=== PATIENT | male | born 1955 | race Caucasian/White ===

== ENCOUNTER 2016-11-10 20:19 | Inpatient (IN) ==
[2016-11-10] MEDS ORDERED: HYDROMORPHONE 2 MG/ML INJECTION IVP ONE ×2 (20:29→21:40)
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
[2016-11-10] MEDS: CYCLOBENZAPRINE 10 MG TABLET PO PRN (23:52)
[2016-11-10] MEDS: LR 1,000 ML IV SCH (23:52)
[2016-11-10] MEDS: HYDROMORPHONE 2 MG/ML INJECTION IVP PRN (23:54)
[2016-11-11] MEDS ORDERED: HYDROMORPHONE 2 MG/ML INJECTION IVP PRN (00:11)
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
[2016-11-11] MEDS: HYDROCODONE/APAP 10 MG/325 MG TABLET PO PRN ×4 (00:34→23:51)
[2016-11-11 00:43] VITALS: BMI 27.0
[2016-11-11] MEDS: HYDROMORPHONE 2 MG/ML INJECTION IVP PRN ×5 (05:49→14:06)
[2016-11-11] MEDS ORDERED: NOZIN NASAL SWAB NAS ONE (06:00)
--- NOTE | 2016-11-11 08:16 | XRay Report ---
Indication: fall, left great toe injury PROCEDURE: XR toes LT min 2V: Encounter: Initial Comparison: None Findings: There is no acute fracture, dislocation or malalignment identified. Impression: No acute osseous abnormality. .
--- NOTE | 2016-11-11 08:17 | XRay Report ---
Indication: fall, right hip and pelvis pain PROCEDURE: XR femur RT 2V: Encounter: Initial Comparison: None Findings: Minimally displaced fracture of the right mid femoral neck. No additional acute fracture or dislocation seen. No significant angulation on the crosstable lateral view. Impression: Closed posttraumatic right femoral neck fracture. .
--- NOTE | 2016-11-11 08:18 | XRay Report ---
Indication: fall, pelvis and hip pain PROCEDURE: XR pelvis w/ 2 view BI hip: Encounter: Initial Comparison: Right femur radiographs from the same date Findings: Minimally displaced right femoral neck fracture is again noted. No additional acute fracture. No dislocation. Hip joint spaces are maintained. Impression: Closed posttraumatic right femoral neck fracture. .
--- NOTE | 2016-11-11 08:20 | CT Scan Report ---
Indication: fall, head and neck pain PROCEDURE: CT cervical spine wo con: Encounter: Initial Comparison: None Technique: Axial CT images through the cervical spine were performed without contrast. Coronal and sagittal reformatted images were also obtained. Automated Exposure Control and Iterative Reconstruction dose reducing techniques were utilized. FINDINGS: The alignment of the cervical spine is normal. Congenitally unfused posterior arch of C1. Multilevel degenerative changes are present. There is no evidence of acute fracture or subluxation of the cervical spine. The atlantoaxial articulation, dens, and upper cervical spine demonstrate no subluxation. The paraspinal soft tissues and spinal canal appear unremarkable. IMPRESSION: No acute traumatic abnormality of the cervical spine. There is a preliminary report by [employer] radiologic. .
--- NOTE | 2016-11-11 08:21 | CT Scan Report ---
Indication: fall, head and neck pain PROCEDURE: CT head/brain wo con: Encounter: Initial Comparison: None Technique: Axial CT images through the head were performed without contrast. Iterative Reconstruction dose reducing technique was utilized. FINDINGS: Mild atrophy. The ventricles are of normal size, shape, and configuration for the patient's age. There is no evidence of acute intracranial hemorrhage, midline displacement, or mass effect. The CT attenuation of the brain parenchyma is otherwise normal within the cerebellum, brain stem, and cerebral hemispheres. The tympanic cavities and mastoid air cells are free of appreciable disease. There are no definite fractures of the skull base, calvarium, or visualized portion of the midface. IMPRESSION: No CT evidence of acute traumatic intracranial injury. There is a preliminary report by [employer]. .
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
[2016-11-11] MEDS ORDERED: HYDROCODONE/APAP 10 MG/325 MG TABLET PO PRN (10:05)
[2016-11-11] MEDS ORDERED: FLUTICASONE NASAL SPRAY 50mcg EA NOSTRIL PRN (10:05)
[2016-11-11] MEDS: LR 1,000 ML IV SCH ×3 (10:30→13:54)
[2016-11-11] MEDS ORDERED: VANCOMYCIN 1,000 MG INJECTION ONE (10:38)
[2016-11-11] MEDS ORDERED: MIDAZOLAM 2mg/2ml INJECTION ONE (10:54)
[2016-11-11] MEDS ORDERED: FentaNYL 250 MCG/5 ML INJECTION ONE ×2 (10:54→12:16)
[2016-11-11] MEDS ORDERED: ANESTHESIA MIXTURE 50 ML IV ONE (11:00)
[2016-11-11] MEDS ORDERED: DEXAMETHASONE 4 MG/ML INJECTION ONE ×2 (11:01→11:20)
[2016-11-11] MEDS ORDERED: ONDANSETRON 4 MG/2 ML INJECTION ONE ×2 (11:01→11:20)
--- NOTE | 2016-11-11 11:07 | XRay Report ---
Indication: preop clearance PROCEDURE: XR chest 1V: Encounter: Initial Comparison: June 09, 2016 Findings: The lungs are stable in appearance without new focal airspace consolidation. There is no pleural effusion or pneumothorax. The heart size, pulmonary vascularity and mediastinal contours are unchanged. IMPRESSION: Stable appearance of the chest without acute cardiopulmonary disease. .
--- NOTE | 2016-11-11 11:11 | Anesthesia Preoperative Report ---
Anesthesia Preoperative Record - Date and Time Date: 11/11/16 Preoperative Diagnosis: R Hip Fx NPO Since Date: 11/10/16 NPO Since Time: 23:00 Allergies/Adverse Reactions: Allergies Allergy/AdvReac Type Severity Reaction Status Date / Time Penicillins Allergy Unknown Verified 11/10/16 20:47 - Vital Signs Vital Signs: Temperature 98.1 F 11/11/16 10:24 Pulse Rate 82 11/11/16 10:24 Respiratory Rate 15 11/11/16 10:24 Blood Pressure 146/90 H 11/11/16 10:24 Pulse Oximetry 93 11/11/16 10:24 Oxygen Delivery Method Room Air Height and Weight: Height 1.83 m Weight 90.4 kg Body Mass Index 27.0 - Medications Inpatient Medications: Current Medications Acetaminophen/Hydrocodone Bitart ([place] 10/325) 1 tab PO Q4H PRN PRN Reason: Pain Last Admin: 11/11/16 00:34 Dose: 1 tab Acetaminophen/Hydrocodone Bitart ([place] 10/325) 1 tab PO Q4H PRN PRN Reason: Pain Aspirin (Ecotrin) 81 mg PO HS TISH Cyclobenzaprine HCl (Flexeril) 10 mg PO TID PRN PRN Reason: PRN orders Last Admin: 11/10/16 23:52 Dose: 10 mg Fluticasone Propionate (Flonase) 1 spray EA NOSTRIL BID PRN PRN Reason: Allergy symptoms Hydromorphone HCl (Dilaudid) 0.5 - 1 mg IVP Q1H PRN PRN Reason: Pain Last Admin: 11/11/16 10:45 Dose: 1 mg Lactated Ringer's (Lactated Ringers) 1,000 mls @ 100 mls/hr IV .Q10H TISH Last Admin: 11/11/16 10:30 Dose: 50 mls/hr Propofol 200 mg/ Esmolol HCl 50 mg/ Ketamine HCl 50 mg/Lidocaine HCl 100 mg/ Magnesium Sulfate 1 g/Dexmedetomidine HCl 15 mcg/Sodium Chloride 50 mls @ 1 mls /hr IV INTRAOP ONE PRN Reason: Protocol Stop: 11/13/16 12:59 Loratadine (Claritin) 10 mg PO HS TISH Lorazepam (Ativan Inj) 0.5 mg IVP Q4H PRN Magnesium Hydroxide (Mom) 30 ml PO DAILY PRN PRN Reason: Constipation Nicotine (Nicoderm) 21 mg TD DAILY PRN Pantoprazole Sodium (Protonix Tab) 40 mg PO HS [facility] Polyethylene Glycol (Miralax) 17 gm PO DAILY TISH Senna/Docusate Sodium (Senna Plus Tablet) 1 tab PO BID TISH Sodium Chloride (Iv Flush) 10 - 80 ml IVF PRN PRN PRN Reason: [place] Home Medications: Home Medications Medication Instructions Recorded Confirmed Type Aspirin [Aspir 81] 81 mg PO HS #30 tab 06/09/16 11/10/16 History Cyclobenzaprine [Flexeril] 10 mg PO TID PRN 11/10/16 11/10/16 History Fluticasone Nasal [place] [Flonase] 1 spray EA NOSTRIL BID PRN 11/10/16 11/10/16 History Hydrocodone/APAP 10/325 [[place] 1 tab PO Q4H PRN 11/10/16 11/10/16 History 10/325] Loratadine [Claritin] 10 mg PO HS 11/10/16 11/10/16 History Nitroglycerin 0.4 mg SL Q5MIN3 PRN 11/10/16 11/10/16 History Pantoprazole Tab [Protonix Tab] 40 mg PO HS 11/10/16 11/10/16 History - Medical History Respiratory: DENIES: Asthma, Bronchitis, Chronic Obstructive Pulmonary Disease (COPD), Dyspnea, Orthopnea, Pulmonary Embolism, Pneumonia, Upper Respiratory Infection, Pulmonary Edema, Sleep Apnea, Tuberculosis, Other Cardiovascular: Reports: Angina (LAST FALL 2015 PRIOR TO (-) STRESS TEST), Coronary Artery Disease (NONOBSTRUCTIVE), Myocardial Infarction (JUNE 2013, (- STRESS TEST FALL 2015 WITH AMARANI) Gastrointestional: Reports: Gastroesophageal Reflux Disease Neuro/Musculoskeletal: Reports: Back Problems, Other (METS <4) Renal/Endocrine: DENIES: Diabetes Mellitus Type 1, Diabetes Mellitus Type 2, Renal Failure, Dialysis, Thyroid Disease, Weight Loss, Weight Gain, Other Other History: DENIES: Anesthesia Reactions, Now, Blood Transfusions, Chemotherapy , Cancer, Hemophilia, Malignant Hyperthermia, Sickle Cell Disease, Other - Surgical History Cardiac Surgeries/Treatments: Reports: Cardiac Catheterization (2013 NO STENTS) GI Surgery/Treatments: Reports: Colonoscopy Anesthesia Reactions: None Hx Family Anesthesia Reaction: No History of Motion Sickness: No - Social History Smoking Status: Current every day smoker packs per day: 1 Pack-years: 50 Hx Chewing Tobacco Use: No Second Hand Exposure: No Substance Use Type: does not use Alcohol Intake Frequency: a few times a week (beer only.) - Pertinent Findings EKG Rhythm: Normal Sinus Rhythm - Physical Exam Respiratory Exam: Present: lungs clear, bilateral breath sounds equal Cardiovascular Exam: Present: regular rate and rhythm, no murmur - Airway Assessment Mallampati Score: III TMD: 3 Fingerbreadths Neck Extension: good Teeth: upper dentures, lower dentures Overall Assessment: may be difficult mask vent - ASA ASA Score: 3 - Plan Anesthesia: General TIVA - Discussion Discussion: Discussed risks/options/alternatives of anesthesia and questions answered. Patient consents. Nursing pain assessment noted. Present for Discussion: spouse Attestation Statement: Prior to the delivery of any anesthetic medication, I examined the patient, developed the plan, obtained the patient's consent and discussed the risk and benefits of the procedure with the patient/guardian. - Additional Information Seen by Anesthesia: Yes
[2016-11-11] MEDS ORDERED: ACETAMINOPHEN 500 MG TABLET PO ONE (11:12)
[2016-11-11] MEDS ORDERED: METOCLOPRAMIDE 10mg/2ml INJECTION ONE (11:20)
[2016-11-11] MEDS: CLINDAMYCIN PB 900 MG/50 ML BAG IV ONE ×2 (11:30→14:17)
[2016-11-11] MEDS: TRANEXAMIC ACID 1,000 MG in NS 100 ML IV ONE ×4 (11:40→14:18)
[2016-11-11] MEDS ORDERED: VANCOMYCIN 1,000 MG INJECTION IAR ONE (12:36)
[2016-11-11] MEDS: EPINEPHrine 0.25 MG, BUPIVACAINE 0.25% PF 30 ML, MORPHINE SULFATE 15 MG, KETOROLAC INJ ... OPSITE ONE ×2 (12:40→14:17)
--- NOTE | 2016-11-11 13:06 | Operative Note ---
- Procedure Date of Admission: 11/11/16 Side: right Preoperative Diagnosis: other (displaced femoral neck fracture) Postoperative Diagnosis: Same as preoperative diagnosis. Operation: Right displaced femoral neck fracture Operation: hip hemiarthroplasty (right ) Surgeon: Maria M Noel MD Forensic Medical Examiner: NANCY Hamilton Complications: None. Anesthesia: General Inhalation Gases Estimated Blood Loss: See Anesthesia Record. Fluids: Please see Anesthesia Record. Description of Procedure: Mr. Ward in his right hip were identified and marked in the preoperative holding area. He is no ice operating suite and placed under general anesthesia. He was then placed in lateral decubitus position with his right side up. The right lower extremity was prepped and draped in my normal sterile fashion. Timeout was performed. A posterior approach was utilized. Sharp dissection was carried to the skin down to the muscle fascia was then split in line with the skin incision. Retractors were placed. The short external rotators were identified and detached and tagged. Hip capsulotomy was performed there was a large french of fracture hematoma. This was evacuated. The hip was then dislocated. The fracture site displaced further when this happened. Femoral neck osteotomy was then made in the head and neck pieces removed. The femoral head was sized to a 54 on the back table and this was trialed and felt good. The proximal femur was then prepared cookie cutter followed by broaching to a size 7. We trialed with a -4 head with 127 neck. This felt good again excellent stability and good leg length. After thorough irrigation a final Accolade 2 size 7 with 127 neck was placed. After thorough irrigation the final 54 mm -4 head was then placed and a final reduction performed. Again leg length and stability were good. Beta solution was used to irrigate and fully irrigated out with normal saline. Cocktail was injected throughout soft tissue. The capsulotomy was repaired with Ethibond. The muscle fascia was repaired with #1 Vicryl followed by 2-0 Vicryl in subcutaneous tissue. I did not my assistant professor of biology to close the skin with Monocryl followed by Dermabond. A sterile dressing with any place and then he'll be allowed to awake from general anesthesia and taken to recovery room under the care of anesthesia.
[2016-11-11] MEDS ORDERED: MEPERIDINE 100 MG/ML INJECTION IVP PRN (13:14)
--- NOTE | 2016-11-11 13:23 | XRay Report ---
Indication: Rt hip fracture. PROCEDURE: XR hip RT min 2V: Encounter: Initial Comparison: Pelvis radiograph dated October 11, 2016 Findings: Right femoral neck is poorly evaluated due to the foreshortening present. Femoral neck fracture is again seen, better appreciated on the crosstable lateral view. No new fracture. No dislocation. Impression: Stable alignment of the right femoral neck fracture. .
--- NOTE | 2016-11-11 13:51 | Anesthesia Postoperative Note ---
- Date and Time Date: 11/11/16 Time: 13:50 - Status Patient Participated in Evaluation: Patient Participated in Person Vital Signs: Temperature 98.1 F 11/11/16 13:01 Pulse Rate 75 11/11/16 13:35 Respiratory Rate 16 11/11/16 13:35 Blood Pressure 151/91 H 11/11/16 13:35 Pulse Oximetry 92 11/11/16 13:35 Oxygen Delivery Method Room Air Respiratory Function: Airway Patent Cardiovascular Function: Regular Pulse EKG Rhythm: Normal Sinus Rhythm Mental Status: Alert and Oriented Pain Intensity: 3 Hydration: Taking PO Fluids Complications During Recover: None Apparent - Follow-Up Instructions Instructions: Per Surgeon
--- NOTE | 2016-11-11 14:09 | XRay Report ---
Indication: postop x-ray PROCEDURE: XR pelvis w/ 1 view RT hip: Encounter: Initial Comparison: November 11, 2016 at 0920 Findings: Postoperative changes of right total hip replacement are seen. There is expected postoperative subcutaneous gas. No evidence of hardware failure or acute fracture. No retained radiopaque surgical instruments or sponges seen. Impression: New right total hip prosthesis without evidence of immediate complication. .
[2016-11-11] MEDS: NS 1,000 ML IV SCH (14:26)
[2016-11-11] MEDS: NOZIN NASAL SWAB NAS SCH ×2 (14:27→21:03)
[2016-11-11] MEDS: CYCLOBENZAPRINE 10 MG TABLET PO PRN (16:23)
[2016-11-11] MEDS: CLINDAMYCIN PB 900 MG/50 ML BAG IV SCH ×2 (16:56→23:51)
--- NOTE | 2016-11-11 16:56 | Discharge Instructions ---
Discharge Plan - Med Rec/Dispo Referrals/Follow Up: Ronak Moreno PA [Physician Spot Checker] - 11/30/16 1:30 pm (Show up 20 minutes ealry to get xrays.) Shayneuv Instructions: [facility] [place] Ortho Fracture Instructions, [facility] Sadie General Instructions Additional Instructions: Follow up with Ronak CRUZ at [facility] on 11/30/16 @ 1:30 pm. Prescriptions: No Action Pantoprazole Tab [Protonix Tab] 40 mg PO HS Cyclobenzaprine [Flexeril] 10 mg PO TID PRN PRN Reason: Prn Orders Hydrocodone/APAP 10/325 [[place] 10/325] 1 tab PO Q4H PRN PRN Reason: Pain Fluticasone Nasal [place] [Flonase] 1 spray EA NOSTRIL BID PRN PRN Reason: Allergy Symptoms Nitroglycerin 0.4 mg SL Q5MIN3 PRN PRN Reason: Chest Pain Aspirin [Aspir 81] 81 mg PO HS #30 tab Loratadine [Claritin] 10 mg PO HS - Disposition 01 Discharged Home, Self-Care
[2016-11-11] MEDS: PANTOPRAZOLE 40 MG TABLET PO SCH (21:03)
[2016-11-11] MEDS: LORATADINE 10 MG TABLET PO SCH (21:03)
[2016-11-11] MEDS: SENNA + DOCUSATE TABLET PO SCH (21:03)
[2016-11-11] MEDS: ENOXAPARIN 40 MG/0.4 ML INJECTION SQ SCH (21:06)
[2016-11-12] MEDS: HYDROCODONE/APAP 10 MG/325 MG TABLET PO PRN ×5 (04:23→21:00)
[2016-11-12] MEDS: NICOTINE 21 MG PATCH TD PRN (04:26)
[2016-11-12] MEDS: NS 1,000 ML IV SCH (04:28)
[2016-11-12] MEDS: NOZIN NASAL SWAB NAS SCH ×3 (05:59→21:01)
[2016-11-12] MEDS: CLINDAMYCIN PB 900 MG/50 ML BAG IV SCH (05:59)
[2016-11-12] MEDS: CYCLOBENZAPRINE 10 MG TABLET PO PRN ×2 (06:04→16:37)
[2016-11-12] MEDS: POLYETHYL GLYCOL 3350 17gm PACKET PO SCH (08:25)
[2016-11-12] MEDS: SENNA + DOCUSATE TABLET PO SCH ×2 (08:25→20:59)
--- NOTE | 2016-11-12 09:13 | Progress Note ---
Subjective: Had surgery yesterday. Takes pain is much improved. Has been ambulating. Denies chest pain, nausea or vomiting. Objective Vital signs: Temperature 95.9 F L 11/12/16 08:00 Pulse Rate 71 11/12/16 08:00 Respiratory Rate 18 11/12/16 08:00 Blood Pressure 153/94 H 11/12/16 08:00 Pulse Oximetry 100 11/12/16 08:00 Oxygen Delivery Method Room Air Gen.-awake alert oriented 3, in no acute distress CV-regular rate and rhythm Lungs-clear to auscultation bilaterally Abdomen-benign Extremities-no edema cyanosis or clubbing Neurological-nonfocal Rhythm: Normal Sinus Rhythm Results - Labs CBC & Chem 7: 11/12/16 04:08 11/12/16 04:08 Assessment and Plan (1) Closed right hip fracture Current visit: Yes Status: Acute Had surgical repair on 11/11. Care per orthopedic surgery. (2) Tobacco abuse Current visit: Yes Status: Acute Counseled on the need to quit smoking for less than 10 minutes. (3) GERD (gastroesophageal reflux disease) Current visit: Yes Status: Acute Continue proton pump inhibitor. (4) Leukocytosis Current visit: Yes Status: Acute Will check urinalysis. Most likely stress reaction. Patient states he sees hematology as an outpatient to have phlebotomy performed. We'll attempt to obtain records. Sepsis Assessment - Evaluation Sepsis screening result: No Definite Risk Hospital Course Summary Disclaimer: The visit summary below is not to be considered part of the above Progress Note.
--- NOTE | 2016-11-12 10:03 | Orthopedic Progress Note ---
Date: Subjective/Severity of Illness: Mr. Dixon is feeling much better today. He still has pain in the hip but again much better than before surgery. He walked yesterday. He is no specific concerns or complaints this morning. Orthopedic Objective Vital signs: Temperature 95.9 F L 11/12/16 08:00 Pulse Rate 71 11/12/16 08:00 Respiratory Rate 18 11/12/16 08:00 Blood Pressure 153/94 H 11/12/16 08:00 Pulse Oximetry 100 11/12/16 08:00 Oxygen Delivery Method Room Air Height and Weight: Height 6 ft Weight 90.4 kg Body Mass Index 27.0 - Constitutional General Appearance: Present: alert - Respiratory Exam Present: non-labored - Cardiovascular Exam Capillary Refill: < 2-3 Seconds - Extremities Exam Present: pulses intact, normal capillary refill. Absent: calf tenderness - Integumentary Exam Present: pink, warm, dry, other (Small abrasions on plantar surface left great toe, right knee anterior and right elbow.) - Neurological Exam Present: intact to light touch, no deficits - Wound Management Left Foot Surrounding Tissue Appearance: [place] Drainage Amount: None Right Hip Primary Dressing: Mepilex - Labs Result Diagrams: 11/12/16 04:08 11/12/16 04:08 Abnormal lab results 11/12/16 11/12/16 Range/Units 04:08 04:08 WBC 13.4 H (4.5-11.0) T/MM3 RBC 4.15 L (4.50-5.90) M/MM3 Hgb 12.2 L D (13.5-17.5) GM/DL Hct 38.2 L D (41-53) % RDW Std Deviation 55.6 H (36.9-50.2) FL Neutrophils % (Manual) 87.0 H (33-66) % Lymphocytes % (Manual) 6.0 L (23-45) % Neutrophils # (Manual) 11.7 H (1.8-7.7) T/MM3 Lymphocytes # (Manual) 0.8 L (1-4.8) T/MM3 Creatinine 0.7 L (0.8-1.5) MG/DL Calculated Osmolality 257 L (261-280) MOSM/KG H & H 11/12/16 Range/Units 04:08 Hgb 12.2 L D (13.5-17.5) GM/DL Hct 38.2 L D (41-53) % Orthopedic Assessment and Plan (1) Closed right hip fracture Status: Acute Qualifiers: Encounter type: initial encounter Qualified Code(s): S72.001A - Fracture of unspecified part of neck of right femur, initial encounter for closed fracture Assessment and Plan: Mr. Ward is doing well. He can weight-bear as tolerated. Follow-up in 3-4 weeks in my clinic. Continue DVT prophylaxis. Hospital Course Summary Disclaimer: The visit summary below is not to be considered part of the above Progress Note.
[2016-11-12] MEDS: HYDROMORPHONE 2 MG/ML INJECTION IVP PRN (19:24)
[2016-11-12] MEDS: ASPIRIN *EC* 81 MG TABLET PO SCH (21:00)
[2016-11-12] MEDS: PANTOPRAZOLE 40 MG TABLET PO SCH (21:00)
[2016-11-12] MEDS: LORATADINE 10 MG TABLET PO SCH (21:00)
[2016-11-12] MEDS: ENOXAPARIN 40 MG/0.4 ML INJECTION SQ SCH (21:01)
[2016-11-13] MEDS: HYDROCODONE/APAP 10 MG/325 MG TABLET PO PRN ×5 (00:59→20:57)
[2016-11-13] MEDS: SALINE FLUSH 10ml SYRINGE IVF PRN (01:00)
[2016-11-13] MEDS: NICOTINE 21 MG PATCH TD PRN (02:38)
[2016-11-13] MEDS: NOZIN NASAL SWAB NAS SCH ×3 (06:24→20:58)
--- NOTE | 2016-11-13 09:27 | Progress Note ---
Subjective: Complains of soreness in the right hip after moving it awkwardly last night. Otherwise, is eager to start walking more today. Objective Vital signs: Temperature 98.2 F 11/13/16 07:16 Pulse Rate 78 11/13/16 07:16 Respiratory Rate 16 11/13/16 07:16 Blood Pressure 155/96 H 11/13/16 07:16 Pulse Oximetry 98 11/13/16 07:16 Oxygen Delivery Method Room Air Gen.-awake alert oriented 3, in no acute distress CV-regular rate and rhythm Lungs-clear to auscultation bilaterally Abdomen-benign Extremities-no edema cyanosis or clubbing Neurological-nonfocal Weight: 91 kg Results - Labs CBC & Chem 7: 11/13/16 04:48 11/13/16 04:48 Assessment and Plan (1) Closed right hip fracture Current visit: Yes Status: Acute Had surgical repair on 11/11. Care per orthopedic surgery. Awaiting rehab placement. 11/13/16 09:28 (2) Tobacco abuse Current visit: Yes Status: Chronic Counseled on the need to quit smoking for less than 10 minutes. (3) GERD (gastroesophageal reflux disease) Current visit: Yes Status: Chronic Continue proton pump inhibitor. (4) Leukocytosis Current visit: Yes Status: Resolved Most likely stress reaction. 11/13/16 09:29 DVT Prophylaxis: Lovenox GI Prophylaxis: Protonix Resuscitation Status: Full Code Sepsis Assessment - Evaluation Sepsis screening result: No Definite Risk Hospital Course Summary Disclaimer: The visit summary below is not to be considered part of the above Progress Note.
[2016-11-13] MEDS: HYDROMORPHONE 2 MG/ML INJECTION IVP PRN ×2 (09:34→20:02)
[2016-11-13] MEDS: POLYETHYL GLYCOL 3350 17gm PACKET PO SCH (09:36)
[2016-11-13] MEDS: SENNA + DOCUSATE TABLET PO SCH ×2 (09:36→20:57)
[2016-11-13] MEDS: CYCLOBENZAPRINE 10 MG TABLET PO PRN (13:25)
[2016-11-13] MEDS: ENOXAPARIN 40 MG/0.4 ML INJECTION SQ SCH (20:56)
[2016-11-13] MEDS: ASPIRIN *EC* 81 MG TABLET PO SCH ×2 (20:57→23:25)
[2016-11-13] MEDS: PANTOPRAZOLE 40 MG TABLET PO SCH ×2 (20:57→23:25)
[2016-11-13] MEDS: LORATADINE 10 MG TABLET PO SCH ×2 (20:58→23:24)
[2016-11-14] MEDS: HYDROCODONE/APAP 10 MG/325 MG TABLET PO PRN ×3 (00:52→10:22)
[2016-11-14 04:28] VITALS: RESP 16
[2016-11-14] MEDS: NOZIN NASAL SWAB NAS SCH (05:59)
[2016-11-14 07:40] VITALS: BP 147/94; PULSE 73; TEMP 97.4; O2SAT 96
--- NOTE | 2016-11-14 07:49 | Orthopedic Progress Note ---
Date: Subjective/Severity of Illness: Lyle is sitting up in bed and appears comfortable. He asked nursing to wake him to take his Lortab so he stays on schedule. He is still taking some Dilaudid intermittently. Walked down the hallway Monday with good tolerance but admits to stopping early to prevent from hurting later. No new complaints. Breathing well. No CP. Orthopedic Objective PO Vital signs: Temperature 97.4 F 11/14/16 07:39 Pulse Rate 73 11/14/16 07:39 Respiratory Rate 16 11/14/16 07:39 Blood Pressure 147/94 H 11/14/16 07:39 Pulse Oximetry 96 11/14/16 07:39 Oxygen Delivery Method Room Air Height and Weight: Height 6 ft Weight 203 lb 0.732 oz Body Mass Index 27.0 - Constitutional General Appearance: Present: alert - Respiratory Exam Present: non-labored - Cardiovascular Exam Present: pedal pulses intact - Surgical Site Incision: dressing intact - Neurological Exam Present: no deficits - Psychiatric Exam Present: alert - Wound Management Left Foot Wound Type: Abrasion Surrounding Tissue Appearance: [place] Drainage Amount: None Right Hip Primary Dressing: Mepilex - Labs Result Diagrams: 11/13/16 04:48 11/13/16 04:48 H & H 11/12/16 11/13/16 Range/Units 04:08 04:48 Hgb 12.2 L D 11.3 L (13.5-17.5) GM/DL Hct 38.2 L D 35.0 L (41-53) % Orthopedic Assessment and Plan (1) Closed right hip fracture Status: Acute Qualifiers: Encounter type: initial encounter Qualified Code(s): S72.001A - Fracture of unspecified part of neck of right femur, initial encounter for closed fracture Assessment and Plan: Cont PT / OT. Discharge planning . WBAT and f/u as scheduled. Recommend Lovenox x 30 days from surgery. Hospital Course Summary Disclaimer: The visit summary below is not to be considered part of the above Progress Note.
[2016-11-14] MEDS: CYCLOBENZAPRINE 10 MG TABLET PO PRN (08:04)
[2016-11-14] MEDS: SENNA + DOCUSATE TABLET PO SCH (08:05)
[2016-11-14] MEDS: SALINE FLUSH 10ml SYRINGE IVF PRN (08:42)
[2016-11-14] MEDS: HYDROMORPHONE 2 MG/ML INJECTION IVP PRN (08:43)
[2016-11-14] MEDS: POLYETHYL GLYCOL 3350 17gm PACKET PO SCH ×2 (09:50→10:22)
--- NOTE | 2016-11-14 11:06 | Discharge Instructions ---
Discharge Plan - Med Rec/Dispo Referrals/Follow Up: Ronak Moreno PA [Physician Manager Rental] - 11/30/16 1:30 pm (Show up 20 minutes ealry to get xrays.) Gautam Instructions: [facility] [place] Ortho Fracture Instructions, [facility] [place] Sadie General Instructions Additional Instructions: Follow up with Ronak CRUZ at [facility] on 11/30/16 @ 1:30 pm. Prescriptions: New Aspirin/Calcium Carbonate/Mag [Aspirin Buffered 325 mg Tab] 325 mg PO BID # 60 tablet Continue Pantoprazole Tab [Protonix Tab] 40 mg PO HS Cyclobenzaprine [Flexeril] 10 mg PO TID PRN PRN Reason: Prn Orders Hydrocodone/APAP 10/325 [[place] 10/325] 1 tab PO Q4H PRN PRN Reason: Pain Fluticasone Nasal [place] [Flonase] 1 spray EA NOSTRIL BID PRN PRN Reason: Allergy Symptoms Nitroglycerin 0.4 mg SL Q5MIN3 PRN PRN Reason: Chest Pain Loratadine [Claritin] 10 mg PO HS Discontinued Aspirin [Aspir 81] 81 mg PO HS #30 tab Discharge Instructions/Outpatient Orders: Final Provider Discharge Instructions Location: Determined By Patient - Disposition 01 Discharged Home, Self-Care
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
== END 2016-11-14 11:43 | disposition home health service (06) | DRG 470 ==
LOC: ED 20:19 → SRG 22:25
PROVIDERS: ADMIT Hospitalist; ATTEND Hospitalist

== ENCOUNTER 2017-07-18 07:30 | Inpatient (IN) ==
--- NOTE | 2017-08-10 09:05 | History and Physical ---
CHIEF COMPLAINT Right hip pain. HISTORY OF PRESENT ILLNESS This is a 61-year-old gentleman who suffered a femoral neck fracture in October 2016. He was treated initially with endoprosthesis. Patient continued to have significant pain in the hip that did not improve with conservative management. Injection in the hip joint markedly improved his hip pain. It is felt his pain is related to wear involving the acetabular component of his hip. He otherwise has no signs of loosening, infection or other problems with the implant. Due to his persistent pain and impairment with daily activities, he is being admitted for revision of his right hip to be converted to total hip replacement. PAST MEDICAL HISTORY Illnesses include: 1. Polycythemia vera. 2. History of coronary artery disease, status post acute OH. 3. He had a heart cath that did not show any obstructive lesion and he did not require a stent placement. 4. GERD. 5. Hyperlipidemia PAST SURGICAL HISTORY 1. He had right endoprosthesis October 2016. 2. He has had colonoscopies. 3. Heart cath. 4. Orbital surgery on the left eye from trauma. MEDICATIONS His current medication list is seen on the chart. Please refer to that for further details. FAMILY AND SOCIAL HISTORY Also unchanged. REVIEW OF SYSTEMS Constitutional: Negative for chills, fever, fatigue, malaise, or weight loss. HEENT: Negative for headache, or dizziness. Respiratory: Negative for cough, shortness of air, recent respiratory infections, or wheezing. Cardiovascular: Negative for chest pain, palpitations, leg swelling, or syncope. Gastrointestinal: Negative for abdominal pain, constipation, diarrhea, vomiting , heartburn, or nausea. Skin: Negative for skin infection or rash. Neurological: Negative for numbness of extremity or seizures. Psychiatric: Negative for anxiety or depression. Hematologic/Lymphatic: Negative for easy bleeding or easy bruising. PHYSICAL EXAMINATION GENERAL: 61-year-old male in mild discomfort. He has obvious limp and walks with the use of a cane PSYCHOLOGIC: Alert and oriented with normal mood and affect. SKIN: Shows a well-healed surgical scar, with no rashes, bruising or other changes. VASCULAR: Shows good pulses involving the lower extremity. No calf tenderness. NEUROLOGIC: Intact with no deficits. MUSCULOSKELETAL: He has pain with flexion and rotational movements of the hip. Otherwise no gross instability. IMPRESSION 1. Painful right hip hemiarthroplasty secondary to acetabular wear. 2. Coronary artery disease status post acute OH. 3. Polycythemia vera. PLAN Mr. Ward has seen Dr. Noel and was evaluated for right total hip arthroplasty. The patient has been encouraged to stop smoking prior to the surgery due to increased risk of complications and infection. He has been seen by his primary care physician and cleared medically. Risks and potential complications of surgery have been explained. All questions have been answered to his satisfaction. Will plan to proceed with a revision of the right hip to convert him to a total hip replacement. Anticipated stay is to be greater than two midnights. [facility]
[2017-08-15] MEDS ORDERED: METOCLOPRAMIDE 10mg/2ml INJECTION IVP ONE (06:00)
[2017-08-15] MEDS ORDERED: LIDOCAINE 1% (10mg/ml) 2mL INJ PF SDV ID ONE (06:00)
[2017-08-15] MEDS ORDERED: DEXAMETHASONE 4 MG/ML INJECTION IVP ONE (06:00)
[2017-08-15] MEDS ORDERED: FAMOTIDINE PB 20 MG/50 ML BAG IV ONE (06:00)
[2017-08-15] MEDS ORDERED: ONDANSETRON 4 MG/2 ML INJECTION IVP ONE (06:00)
[2017-08-15] MEDS ORDERED: ACETAMINOPHEN 500 MG TABLET PO ONE (06:00)
[2017-08-15] MEDS ORDERED: CEFAZOLIN 1 G INJECTION IVP ONE (06:40)
[2017-08-15 06:55] VITALS: BMI 28.5
--- NOTE | 2017-08-15 07:37 | Anesthesia Preoperative Report ---
Anesthesia Preoperative Record - Date and Time Date: 08/15/17 Preoperative Diagnosis: Rt NUPUR Rev T84.84XD NPO Since Date: 08/14/17 NPO Since Time: 20:30 Allergies/Adverse Reactions: Allergies Allergy/AdvReac Type Severity Reaction Status Date / Time Penicillins Allergy Unknown Verified 08/15/17 06:58 - Vital Signs Vital Signs: Temperature 98.2 F 08/15/17 06:54 Pulse Rate 90 08/15/17 07:21 Respiratory Rate 14 08/15/17 06:54 Blood Pressure 152/81 H 08/15/17 06:54 Pulse Oximetry 96 08/15/17 06:54 Height and Weight: Height 1.83 m Weight 95.7 kg Body Mass Index 28.5 - Medications Inpatient Medications: Current Medications Epinephrine HCl 0.25 mg/Bupivacaine HCl 30 ml/Ketorolac Tromethamine 60 mg/ Sodium Chloride 62.25 mls @ 0 mls/hr OPSITE INTRAOP ONE; Per Protocol PRN Reason: Protocol Stop: 08/15/17 08:01 Lactated Ringer's (Lactated Ringers) 1,000 mls @ 50 mls/hr IV .Q20H TISH Isopropyl Alcohol (Nozin Nasal Swab) 1 each MICAH Q1M TISH Stop: 08/15/17 12:48 Sodium Chloride (Iv Flush) 10 - 80 ml IV PRN PRN PRN Reason: Flushing Tranexamic Acid (Cyklokapron) 1,000 mg TOP INTRAOP ONE Stop: 08/15/17 12:34 Home Medications: Home Medications Medication Instructions Recorded Confirmed Type Cyclobenzaprine [Flexeril] 10 mg PO TID PRN 11/10/16 08/15/17 History Fluticasone Nasal [place] [Flonase] 1 spray EA NOSTRIL BID PRN 11/10/16 08/15/17 History Hydrocodone/APAP 10/325 [[place] 1 tab PO Q4H PRN 11/10/16 08/15/17 History 10/325] Loratadine [Claritin] 10 mg PO HS 11/10/16 08/15/17 History Nitroglycerin 0.4 mg SL Q5MIN3 PRN 11/10/16 08/08/17 History Pantoprazole Tab [Protonix Tab] 40 mg PO HS 11/10/16 08/15/17 History aspirin 81 mg chewable tablet 81 mg PO DAILY 06/13/17 08/14/17 History ergocalciferol (vitamin D2) 50,000 50,000 unit PO DAILY #2 cap 08/10/17 Rx unit capsule - Medical History Respiratory: Reports: Other (seasonal allergy, hoarsed voice) Cardiovascular: Reports: Angina (2015 PRIOR TO (-) STRESS TEST), Coronary Artery Disease (NONOBSTRUCTIVE), Hypertension, Myocardial Infarction (JUNE 2013 , (- STRESS TEST FALL 2015 WITH AMARANI) Gastrointestional: Reports: Gastroesophageal Reflux Disease Neuro/Musculoskeletal: Reports: Back Problems (since 1998. Patient on pain meds since 2013.), Muscle Weakness (right hip), Other (METS <4) Other History: Reports: Cancer - Surgical History Cardiac Surgeries/Treatments: Reports: Cardiac Catheterization (2013 NO STENTS) GI Surgery/Treatments: Reports: Colonoscopy Surgery/Treatment: DENIES: Dialysis Musculoskeletal Surgery/Tx: Reports: Other (Rt hip hemiarthroplasty) Anesthesia Reactions: None Hx Family Anesthesia Reaction: No History of Motion Sickness: No - Social History Smoking Status: Current every day smoker Packs per day: 1 Pack-years: 50 Hx Chewing Tobacco Use: No Second Hand Exposure: No Substance Use Type: does not use Alcohol Intake Frequency: a few times a week - Pertinent Findings Laboratory: CBC and BMP 08/15/17 07:01 08/15/17 07:01 BMP 08/15/17 07:01 Sodium 139 Potassium 4.0 Chloride 102 Carbon Dioxide 23 BUN 9.0 Creatinine 0.7 L Glucose 98 Calcium 9.4 EKG: Sinus Rhythm - Physical Exam Respiratory Exam: Present: lungs clear, bilateral breath sounds equal Cardiovascular Exam: Present: regular rate and rhythm - Airway Assessment Mallampati Score: II TMD: 3 Fingerbreadths Neck Extension: fair Teeth: upper dentures, lower dentures Overall Assessment: no airway concerns - ASA ASA Score: 3 - Plan Anesthesia: General Inhalation Gases Regional/Trunk Block: Spinal - Discussion Discussion: Discussed risks/options/alternatives of anesthesia and questions answered. Patient consents. Nursing pain assessment noted. Present for Discussion: family member Attestation Statement: Prior to the delivery of any anesthetic medication, I examined the patient, developed the plan, obtained the patient's consent and discussed the risk and benefits of the procedure with the patient/guardian. - Additional Information Seen by Anesthesia: Yes
[2017-08-15] MEDS ORDERED: ANESTHESIA MIXTURE 50 ML IV ONE (07:45)
[2017-08-15] MEDS ORDERED: SUFentanil 50mcg/ml INJECTION ONE (07:49)
[2017-08-15] MEDS ORDERED: PROPOFOL 20 ML ONE (07:50)
[2017-08-15] MEDS ORDERED: ROCURONIUM 50 MG/5 ML INJECTION IVP ONE (07:50)
[2017-08-15] MEDS: LR 1,000 ML IV SCH ×3 (07:51→11:13)
[2017-08-15] MEDS ORDERED: SALINE FLUSH 10ml SYRINGE ONE (07:51)
[2017-08-15] MEDS: NOZIN NASAL SWAB NAS SCH ×5 (07:51→21:31)
[2017-08-15] MEDS ORDERED: EPINEPHrine PF 0.25 MG, BUPIVACAINE 0.25% PF 30 ML, KETOROLAC INJ 60 MG in NS 30 ML OPSITE ONE (08:00)
[2017-08-15] MEDS ORDERED: VANCOMYCIN 1,000 MG INJECTION ONE (08:10)
[2017-08-15] MEDS ORDERED: ONDANSETRON 4 MG/2 ML INJECTION ONE (08:54)
[2017-08-15] MEDS ORDERED: DEXAMETHASONE 4 MG/ML INJECTION ONE (08:54)
[2017-08-15] MEDS ORDERED: VANCOMYCIN 1,000 MG INJECTION IAR ONE (09:00)
[2017-08-15] MEDS ORDERED: SEVOFLURANE 250ml LIQUID IH ONE (09:10)
[2017-08-15] MEDS ORDERED: SUGAMMADEX 200mg/2ml INJECTION IVP ONE (09:10)
[2017-08-15] MEDS ORDERED: DESFLURANE 240ml LIQUID IH ONE (09:10)
[2017-08-15] MEDS ORDERED: PHENYLEPHRINE INJ 10 MG/ML VIAL IV ONE (09:45)
[2017-08-15] MEDS ORDERED: ONDANSETRON 4 MG/2 ML INJECTION IVP PRN ×2 (10:11→12:14)
[2017-08-15] MEDS: HYDROMORPHONE 2 MG/ML INJECTION IVP PRN ×2 (11:09→11:19)
[2017-08-15] MEDS: FentaNYL 100 MCG/2 ML INJECTION IVP PRN ×2 (11:35→11:46)
--- NOTE | 2017-08-15 12:04 | Anesthesia Postoperative Note ---
- Date and Time Date: 08/15/17 Time: 11:34 - Status Patient Participated in Evaluation: Patient Participated in Person Vital Signs: Temperature 97.8 F 08/15/17 11:57 Pulse Rate 91 08/15/17 11:55 Respiratory Rate 17 08/15/17 11:55 Blood Pressure 132/85 08/15/17 11:55 Pulse Oximetry 94 08/15/17 11:55 Respiratory Function: Airway Patent, Regular Respirations Cardiovascular Function: Regular Pulse Mental Status: Alert and Oriented Pain Intensity: 7 (difficult to control pain d/t chronic use) Hydration: IV Infusing Complications During Recover: None Apparent - Follow-Up Instructions Instructions: Per Surgeon
[2017-08-15] MEDS ORDERED: NITROGLYCERIN 0.4 MG SUBLINGUAL TABLET SL PRN (12:14)
[2017-08-15] MEDS ORDERED: NOZIN NASAL SWAB NAS ONE (12:14)
[2017-08-15] MEDS ORDERED: LORazepam 1 MG TABLET PO PRN (12:14)
[2017-08-15] MEDS ORDERED: DiphenhydrAMINE 25 MG CAPSULE PO PRN (12:14)
[2017-08-15] MEDS ORDERED: DiphenhydrAMINE 50 MG/ML INJECTION IVP PRN (12:14)
[2017-08-15] MEDS: NS 1,000 ML IV SCH (12:17)
[2017-08-15] MEDS: ACETAMINOPHEN 325 MG TABLET PO SCH ×3 (12:17→20:20)
[2017-08-15] MEDS ORDERED: TRANEXAMIC ACID 1,000 MG/10 ML VIAL TOP ONE (12:33)
[2017-08-15] MEDS ORDERED: SALINE FLUSH 10ml SYRINGE IV PRN (12:33)
[2017-08-15] MEDS ORDERED: FALL RISK - PHARMACY CONSULT MC ONE (12:38)
--- NOTE | 2017-08-15 12:42 | XRay Report ---
Indication: postoperative image PROCEDURE: XR pelvis w/ 1 view RT hip: Encounter: Initial Comparison: July 05, 2017 Findings: Postoperative changes of right total hip revision are seen. There is expected postoperative subcutaneous gas. No evidence of hardware failure or acute fracture. No retained radiopaque surgical instruments or sponges seen. Impression: New right total hip prosthesis without evidence of immediate complication. .
[2017-08-15] MEDS: Oxycodone *IR* 5 MG TABLET PO PRN ×4 (12:54→22:04)
--- NOTE | 2017-08-15 15:28 | Operative Note ---
DATE OF OPERATION 08/15/2017 PREOPERATIVE DIAGNOSIS Right hip posttraumatic osteoarthritis, status post right hip hemiarthroplasty. POSTOPERATIVE DIAGNOSIS Right hip posttraumatic osteoarthritis, status post right hip hemiarthroplasty. PROCEDURE Conversion of right hip hemiarthroplasty to right total hip arthroplasty. SURGEON Collin Noel MD EDGE BRUSHER Ronak Moreno PA-C COMPLICATIONS None. ANESTHESIA General EBL AND FLUIDS Please see anesthetic records. DESCRIPTION OF PROCEDURE Mr. Ward and his right hip were identified and marked in the preoperative holding area. He was brought back to the operating suite and placed supine on the operating table. He was placed under general anesthesia and intubated. He was then placed into a lateral decubitus position on a well-padded pegboard. The right lower extremity was prepped and draped in my normal sterile fashion. Time-out was performed. Preoperatively with his knees together, he was just slightly short on the right. I utilized the previous posterior skin incision. I did extend it distally approximately 8 or 9 cm. Sharp dissection was carried through the subcutaneous tissue down to the muscle fascia which was then split in line with the skin incision. He had abundant scar tissue over the short external rotators where the previous capsulotomy was repaired. This was taken down to expose the hip joint and femoral component and ball. Electrocautery was used to strip the soft tissue off the proximal femur just enough so that we could get some maneuverability to allow for dislocation which was done. The femoral head was then removed with a tamp without incident. The remaining femoral component appeared in good condition. I did put a pair of Kochers on it and shucked the femur to ensure that it was stable which it appeared to be. I then released the remaining scar tissue and labrum within the acetabulum. I also released some anterior capsule to allow us to position the femoral neck anterior to the acetabulum. This did take some time to achieve but once we did, we had good exposure of the acetabulum. I began sequentially reaming with a 47 and reamed to a 57. I trialed a 57 cup. This looked good and so a final 58 mm Trident cup was impacted into position aiming for 20 degrees of anteversion and 40 degrees of tilt. This was checked for stability; it was good. I then placed a liner which also seated well. We then trialed with a zero; this was obviously too short and we ended up trialing with a +10 head. This gave good leg length and good stability. I did have some anterior osteophytes that I did remove which helped with some impingement anteriorly. He had a good shuck sign, and again was nice and stable up to 90 degrees of flexion and 45 degrees of internal rotation. After final irrigation, a final + 10 36 mm head was placed and final reduction performed. Joint cocktail was injected into the soft tissue. One gram of vancomycin powder was placed into the joint. The capsulotomy was then repaired with #1 Ethibond. The IT band and fascia were repaired both with #1 Ethibond and a running #1 Vicryl. I then left my assistant fitness manager to close the subcutaneous tissue with an 0 V-Loc running barbed suture, 2-0 Vicryl interrupted sutures and a Monoderm in the subcuticular layer. A sterile dressing will be placed and he will be put back into a supine position and then allowed to awake from general anesthesia and taken to the recovery room under the care of Anesthesia. He tolerated the procedure well. There were no complications. PIPPA
[2017-08-15] MEDS: CEFAZOLIN 2 G in NS 100 ML IV SCH (16:28)
[2017-08-15] MEDS: CYCLOBENZAPRINE 10 MG TABLET PO PRN (17:36)
[2017-08-15] MEDS: ASPIRIN *EC* 81 MG TABLET PO SCH (20:20)
[2017-08-15] MEDS: NAPROXEN 220 MG TABLET PO SCH (20:20)
[2017-08-15] MEDS: DOCUSATE SODIUM 100 MG CAPSULE PO SCH (20:20)
[2017-08-15] MEDS ORDERED: LORATADINE 10 MG TABLET PO SCH (21:00)
[2017-08-15] MEDS ORDERED: PANTOPRAZOLE 40 MG TABLET PO SCH (21:00)
[2017-08-15] MEDS ORDERED: SENNOSIDES 8.6 MG TABLET PO SCH (21:00)
[2017-08-16] MEDS: CEFAZOLIN 2 G in NS 100 ML IV SCH (00:05)
[2017-08-16] MEDS: Oxycodone *IR* 5 MG TABLET PO PRN ×5 (01:12→13:55)
[2017-08-16] MEDS: CYCLOBENZAPRINE 10 MG TABLET PO PRN ×2 (01:12→11:52)
[2017-08-16] MEDS: NS 1,000 ML IV SCH (01:13)
[2017-08-16] MEDS: NOZIN NASAL SWAB NAS SCH ×2 (05:31→13:01)
[2017-08-16 07:13] VITALS: PULSE 83; RESP 18
--- NOTE | 2017-08-16 08:24 | Orthopedic Progress Note ---
Date: Date: 08/16/17 Time: 819 Subjective/Severity of Illness: Lyle is doing well this AM. His pain is controlled on PO meds. He has been on [place] 10mg for several years for back pain. The hip pain feels different than before surgery. He has been up to the BR with good tolerance. Had some bloody drainage from the incision overnight. No other concerns. He will work with PT this AM. Orthopedic Exam Vital signs: Temperature 97.6 F 08/16/17 07:13 Pulse Rate 83 08/16/17 07:13 Respiratory Rate 18 08/16/17 07:13 Blood Pressure 134/82 08/16/17 07:13 Pulse Oximetry 96 08/16/17 07:13 - Constitutional General Appearance: Present: alert, cooperative, no acute distress - Respiratory Exam Present: non-labored - Cardiovascular Exam Present: pedal pulses intact - Extremities Exam Present: pulses intact. Absent: calf tenderness - Dressing Dressing: bloody drainage - Integumentary Exam Present: pink, warm, dry - Neurological Exam Present: intact to light touch, no deficits - Psychiatric Exam Present: alert, normal affect - Labs Result Diagrams: 08/16/17 04:18 08/16/17 04:18 Abnormal lab results 08/16/17 08/16/17 Range/Units 04:18 04:18 Hgb 11.4 L D (13.5-17.5) GM/DL Creatinine 0.7 L (0.8-1.5) mg/dL Glucose 125 H (75-110) MG/DL H & H 08/15/17 08/16/17 Range/Units 07:01 04:18 Hgb 14.3 11.4 L D (13.5-17.5) GM/DL Hct 43.8 (41-53) % Coagulation 08/15/17 Range/Units 07:01 INR 0.98 (0.92-1.18) Orthopedic Assessment and Plan (1) Hip pain, right Status: Acute Assessment and Plan: Current anti-coagulation protocol for VTE prophylaxis. SCD's for added DVT coverage. Watch drainage for now. Will reapply a Mepilex when drainage slows. PT/OT services to improve independent function. Discharge Planning per Case Management. (2) History of right hip hemiarthroplasty Status: Acute - Anticoagulation Therapy Anticoagulation: ASA 81 mg PO BID x6 weeks Hospital Course Summary Disclaimer: The visit summary below is not to be considered part of the above Progress Note.
[2017-08-16] MEDS: ACETAMINOPHEN 325 MG TABLET PO SCH ×2 (08:37→13:00)
[2017-08-16] MEDS: ASPIRIN *EC* 81 MG TABLET PO SCH (08:38)
[2017-08-16] MEDS: DOCUSATE SODIUM 100 MG CAPSULE PO SCH (08:38)
[2017-08-16] MEDS: NAPROXEN 220 MG TABLET PO SCH (08:38)
[2017-08-16] MEDS ORDERED: POLYETHYL GLYCOL 3350 17gm PACKET PO SCH (09:00)
[2017-08-16] MEDS ORDERED: SENNOSIDES 8.6 MG TABLET PO PRN (10:50)
[2017-08-16 11:49] VITALS: BP 142/88; TEMP 97.3; O2SAT 99
--- NOTE | 2017-08-16 13:58 | Discharge Summary ---
Orthopedic Discharge Info Date of admission: 08/15/17 06:34 Primary care physician: Cali Zimmerman MD Attending Physician: Collin Noel MD Consults: 08/15/17 06:40 Consult to Anesthesiology [CONS] Routine Reason For Exam: Preoperative Assessment 08/15/17 12:14 Case Management Consult [CONS] Routine Reason For Exam: Discharge Planning DME-Walker [CONS] Routine Height: 6 ft Weight: 210 lb 15.718 oz Total Joint Outpatient Therapy [CONS] Routine Comment: Remove dressing in 2 weeks - Discharge Diagnosis (1) History of right hip hemiarthroplasty Status: Acute (2) Hip pain, right Status: Acute - Procedures Procedures: Procedures Right NUPUR - Laboratory Result Diagrams: 08/16/17 04:18 08/16/17 04:18 Laboratory: Abnormal lab results 08/16/17 08/16/17 Range/Units 04:18 04:18 Hgb 11.4 L D (13.5-17.5) GM/DL Creatinine 0.7 L (0.8-1.5) mg/dL Glucose 125 H (75-110) MG/DL H & H 08/15/17 08/16/17 Range/Units 07:01 04:18 Hgb 14.3 11.4 L D (13.5-17.5) GM/DL Hct 43.8 (41-53) % Coagulation 08/15/17 Range/Units 07:01 INR 0.98 (0.92-1.18) Orthopedic Discharge HPI - HPI Comments This patient was admitted for elective surgical tx of end stage degenerative joint disease that failed to respond to conservative treatment. Further details of this is found in the admission H&P. Orthopedic Hospital Course Hospital course: 08/16/17 13:56 After appropriate preoperative clearance and signing of operative consent, the patient was given IV antibiotics, according to orthopedic protocol. The patient was taken to the operating room and underwent elective joint arthroplasty. Following surgery, antibiotics were discontinued less than 24 hours according to joint protocol. Appropriate anticoagulants were initiated and SCDs added for DVT prevention. The dressing was clean, dry, and intact. Pain control was obtained via multimodal approach. Bowel motivation addressed with scheduled and PRN medications. Early mobilization was initiated through PT services. Discharge arrangements made by a collaborative effort between the patient and Case Management. Follow-up is scheduled in 2-3 weeks. Discharge instructions given by orthopedic providers and nursing staff at discharge. Discharge condition was good. Care extended to > 2 midnight stays?: No Discharge Plan - Med Rec/Dispo Referrals/Follow Up: Collin Noel MD [Physician] - 09/06/17 1:15 pm Gautam Instructions: [facility] [place] [facility] Postop Instructions Prescriptions: New Naproxen [Aleve (Naproxen) 220 mg] 440 mg PO BID tab Oxycodone *IR* [Roxicodone *Ir*] 5 - 15 mg PO Q3H PRN #60 tab PRN Reason: Breakthrough Pain PEG 3350 17gm PACKET [Miralax] 17 gm PO DAILY packet Acetaminophen [Tylenol] 650 mg PO QID tab Aspirin *EC* [Ecotrin] 81 mg PO BID #84 tab Continue Pantoprazole Tab [Protonix Tab] 40 mg PO HS Cyclobenzaprine [Flexeril] 10 mg PO TID PRN PRN Reason: Prn Orders Fluticasone Nasal [place] [Flonase] 1 spray EA NOSTRIL BID PRN PRN Reason: Allergy Symptoms Nitroglycerin 0.4 mg SL Q5MIN3 PRN PRN Reason: Chest Pain Loratadine [Claritin] 10 mg PO HS ergocalciferol (vitamin D2) 50,000 unit capsule 50,000 unit PO DAILY #2 cap Discontinued Hydrocodone/APAP 10/325 [[place] 10/325] 1 tab PO Q4H PRN PRN Reason: Pain aspirin 81 mg chewable tablet 81 mg PO DAILY - Disposition 01 Discharged Home, Self-Care - Dismissal Complete Discharge Instructions are:: Complete
[2017-08-17] MEDS ORDERED: BISACODYL 10 MG SUPPOSITORY RECTALLY SCH (20:00)
== END 2017-08-16 14:18 | disposition home health service (06) | DRG 468 ==
LOC: NMC.PERIOP 08-15 06:34 → SRG 08-15 11:57
PROVIDERS: ADMIT Orthopaedic Surgery; ATTEND Orthopaedic Surgery